=== PATIENT | female | born 1990 | race Caucasian/White ===

== ENCOUNTER 2018-03-10 23:37 | Emergency (ER) | END 2018-03-11 02:20 | disposition left against medical advice (07) ==

== ENCOUNTER 2018-08-27 21:22 | Emergency (ER) | END 2018-08-28 00:09 | disposition home or self-care (01) ==

== ENCOUNTER 2018-09-06 06:05 | Emergency (ER) | END 2018-09-06 08:06 | disposition home or self-care (01) ==